=== PATIENT | male | born 1990 ===

== ENCOUNTER 2018-11-19 12:30 | Inpatient (IN) | payer OTHER ==
--- NOTE | 2018-11-19 14:16 | ED PDOC ---
HPI: Back Time Seen by Provider: 11/19/18 13:00 Chief Complaint (Nursing): Back Pain Chief Complaint (Provider): Back Pain History Per: Patient History/Exam Limitations: no limitations Current Symptoms Are (Timing): Still Present Additional Complaint(s): Jay Griggs is a 28 year old male with a history of back pain, who presents to the emergency department complaining of worsening back pain. Patient states that he was in an accident at work x1 year go, where he fell and herniated his lumbar spine. Since that onset, patient has had difficulty moving and working. Patient states that x1 week ago, he had an injection to the back but has had no relief of pain since. Dr. Lockhart recommended him to go to the ED. Patient sees Dr. Lockhart and follows up with Dr. Payne. He denies any recent trauma. Patient had imaging done x3 weeks ago that shows herniated disc. He has shooting pain down his left leg, but denies incontinence, retention or loss of strength. PMD: Dr. Payne Past Medical History Reviewed: Historical Data, Nursing Documentation, Vital Signs Vital Signs: Last Vital Signs Temp 98.4 F 11/19/18 12:35 Pulse 64 11/19/18 12:35 Resp 16 11/19/18 12:35 BP 117/64 11/19/18 12:35 Pulse Ox 100 11/19/18 12:35 - Medical History PMH: No Chronic Diseases Other PMH: herniated disc - Surgical History Surgical History: No Surg Hx - Family History Family History: States: Unknown Family Hx - Home Medications Home Medications: Ambulatory Orders Medication Instructions Recorded No Known Home Med 11/19/18 - Allergies Allergies/Adverse Reactions: Allergies Allergy/AdvReac Type Severity Reaction Status Date / Time No Known Allergies Allergy Verified 11/19/18 12:32 Review of Systems Genitourinary Male: Negative for: Incontinence Musculoskeletal: Positive for: Back Pain, Leg Pain (left leg) Physical Exam - Reviewed Nursing Documentation Reviewed: Yes Vital Signs Reviewed: Yes - Physical Exam Appears: Positive for: Non-toxic, No Acute Distress Head Exam: Positive for: ATRAUMATIC, NORMOCEPHALIC Skin: Positive for: Normal Color, Warm, Dry Cardiovascular/Chest: Positive for: Regular Rate, Rhythm. Negative for: Murmur Respiratory: Positive for: Normal Breath Sounds. Negative for: Respiratory Distress Back: Positive for: Other (tenderness to palpation along lumbar spine) Extremity: Positive for: Normal ROM. Negative for: Pedal Edema, Deformity Neurologic/Psych: Positive for: Alert, Oriented, Other (full strength and neurological sensation in lower extremity ) - Laboratory Results Result Diagrams: 11/19/18 14:27 11/19/18 14:27 - ECG O2 Sat by Pulse Oximetry: 100 (RA) Pulse Ox Interpretation: Normal Medical Decision Making Medical Decision Making: Time: 1338 A/P: Work up for worsening back pain. Give patient Toradol and flexeril and will discuss with Dr. Lockhart. Reassess patient. --Type and screen --EKG --BMP --CBC with differential --Chest xray --Flexeril 10 mg PO --Toradol 15 mg IM Time: 1411 --Patient admitted for intractable back pain under Dr. Payne. Time: 1450 Chest xray FINDINGS: LUNGS: The lungs are well inflated and clear. PLEURA: No pleural effusions or pneumothorax. CARDIOVASCULAR: The heart is normal in size. No aortic atherosclerotic calcifications present. OSSEOUS STRUCTURES: Within normal limits for the patient's age. VISUALIZED UPPER ABDOMEN: Normal. OTHER FINDINGS: None. IMPRESSION: No active pulmonary disease. Scribe Attestation: Documented by Tony Edge, acting as a scribe for Shena Rajan MD. Provider Scribe Attestation: All medical record entries made by the Scribe were at my direction and personally dictated by me. I have reviewed the chart and agree that the record accurately reflects my personal performance of the history, physical exam, medical decision making, and the department course for this patient. I have also personally directed, reviewed, and agree with the discharge instructions and disposition. Disposition - Patient ED Disposition Is Patient to be Admitted: Yes - Disposition Disposition Time: 14:09
--- NOTE | 2018-11-19 14:43 | RAD ---
Date of service: 11/19/2018 HISTORY: possible admission COMPARISON: No prior. FINDINGS: LUNGS: The lungs are well inflated and clear. PLEURA: No pleural effusions or pneumothorax. CARDIOVASCULAR: The heart is normal in size. No aortic atherosclerotic calcifications present. OSSEOUS STRUCTURES: Within normal limits for the patient's age. VISUALIZED UPPER ABDOMEN: Normal. OTHER FINDINGS: None. IMPRESSION: No active pulmonary disease.
[2018-11-19 14:44] LABS: BASO % 0.9 % (0.0-2.0); EOS # 0.1 K/uL (0.0-0.7); HEMOGLOBIN 11.1 g/dL (12.0-18.0); LYMPH # 1.9 K/uL (1.0-4.3); LYMPH % 42.6 % (20.0-40.0); MEAN CELL VOLUME 64.3 fl (80.0-94.0); MEAN CORPUSCULAR HEMOGLOBIN 20.1 pg (27.0-31.0); MEAN CORPUSCULAR HGB CONC 31.3 g/dL (33.0-37.0); MEAN PLATELET VOLUME 9.4 fl (7.2-11.7); MONO # 0.4 K/uL (0.0-0.8); MONO % 9.2 % (0.0-10.0); NEUT % 45.3 % (50.0-75.0); NRBC % 0.4 % (0.0-0.0); RBC 5.55 Mil/uL (4.40-5.90); RED CELL DISTRIBUTION WIDTH 14.9 % (11.5-14.5); WHITE BLOOD COUNT 4.5 K/uL (4.8-10.8)
[2018-11-19 15:01] LABS: BLOOD UREA NITROGEN 13 mg/dl (9-20); CALCIUM 9.5 mg/dL (8.4-10.2); GFR NON-AFRICAN AMERICAN > 60
--- NOTE | 2018-11-19 18:13 | CARD ---
APPROVED REPORT Date of service: 11/19/2018 EKG Measurement Heart [id number] <Conclusion> Sinus bradycardia with 1st degree AV block with premature ventricular complexes Otherwise normal ECG
[2018-11-19 18:36] LABS: PROTHROMBIN TIME 11.9 Seconds (9.8-13.1)
[2018-11-19 18:38] LABS: PARTIAL THROMBOPLASTIN TIME 34.6 Seconds (25.6-37.1)
[2018-11-20 05:40] LABS: SQUAMOUS EPITHIAL 1 /hpf (0-5); URINE BILIRUBIN NEGATIVE (NEGATIVE); URINE BLOOD NEGATIVE (NEGATIVE); URINE CLARITY CLOUDY (Clear); URINE COLOR YELLOW (YELLOW); URINE GLUCOSE (UA) NEG (NEGATIVE); URINE LEUKOCYTE ESTERASE NEG Leu/uL (Negative); URINE PROTEIN NEGATIVE (NEGATIVE); URINE UROBILINOGEN 0.2-1.0 mg/dL (0.2-1.0)
[2018-11-20] MEDS ORDERED: Dextrose 5%/0.9% NS 1,000 ML IV SCH (06:00)
--- NOTE | 2018-11-20 07:01 | CP.PCM.HP ---
History of Present Illness - History of Present Illness History of Present Illness: HPI: 28 y/o Male with a PMH of back pain presented to the ED with worsening back pain s/p work accident 1 year ago. As per the pt, he suffered lumbar herniation and has received lumbar injections, with no relief. Neurosurgery (Dr. Lockhart) is on consult, and the pt will undergo a lumbar procedure today. PMH: Back pain. PSH: Unremarkable. Allergies: NKDA. Present on Admission - Present on Admission Any Indicators Present on Admission: No Review of Systems - Review of Systems All systems: reviewed and no additional remarkable complaints except Review of Systems: lower back pain. Past Patient History - Past Medical History & Family History Past Medical History?: No - Past Social History Smoking Status: Never Smoked - CARDIAC Hx Cardiac Disorders: No - PULMONARY Hx Respiratory Disorders: No - NEUROLOGICAL Hx Neurological Disorder: No - HEENT Hx HEENT Problems: No - RENAL Hx Chronic Kidney Disease: No - ENDOCRINE/METABOLIC Hx Endocrine Disorders: No - HEMATOLOGICAL/ONCOLOGICAL Hx Blood Disorders: No Hx AIDS: No Hx Human Immunodeficiency Virus (HIV): No - INTEGUMENTARY Hx Dermatological Problems: No - MUSCULOSKELETAL/RHEUMATOLOGICAL Hx Falls: Yes Hx Herniated Disk: Yes (L3-L4) Other/Comment: epidural injection 3 weeks ago - GASTROINTESTINAL Hx Gastrointestinal Disorders: No - GENITOURINARY/GYNECOLOGICAL Hx Genitourinary Disorders: No - PSYCHIATRIC Hx Psychophysiologic Disorder: No Hx Substance Use: No - SURGICAL HISTORY Hx Surgeries: No - ANESTHESIA Hx Anesthesia: No Hx Anesthesia Reactions: No Meds Allergies/Adverse Reactions: Allergies Allergy/AdvReac Type Severity Reaction Status Date / Time No Known Allergies Allergy Verified 11/19/18 12:32 Physical Exam - Constitutional Appears: Well - Head Exam Head Exam: ATRAUMATIC, NORMAL INSPECTION, NORMOCEPHALIC - Eye Exam Eye Exam: EOMI, Normal appearance, PERRL Pupil Exam: NORMAL ACCOMODATION, PERRL - ENT Exam ENT Exam: Mucous Membranes Moist, Normal Exam - Neck Exam Neck exam: Positive for: Normal Inspection - Respiratory Exam Respiratory Exam: Clear to Auscultation Bilateral, NORMAL BREATHING PATTERN - Cardiovascular Exam Cardiovascular Exam: REGULAR RHYTHM, +S1, +S2 - GI/Abdominal Exam GI & Abdominal Exam: Normal Bowel Sounds, Soft - Extremities Exam Extremities exam: Positive for: full ROM, normal inspection - Back Exam Back exam: NORMAL INSPECTION, tenderness Additional comments: lower back painful ROM and tenderness. - Neurological Exam Neurological exam: Alert, CN II-XII Intact, Oriented x3 - Psychiatric Exam Psychiatric exam: Normal Affect, Normal Mood - Skin Skin Exam: Dry, Intact, Normal Color, Warm Results - Vital Signs Recent Vital Signs: Last Vital Signs Temp 97.9 F 11/20/18 04:53 Pulse 51 L 11/20/18 04:53 Resp 18 11/20/18 04:53 BP 94/54 L 11/20/18 04:53 Pulse Ox 98 11/20/18 04:53 - Labs Result Diagrams: 11/19/18 14:27 11/19/18 14:27 Labs: Laboratory Results - last 24 hr 11/19/18 11/19/18 11/19/18 14:27 14:27 14:27 WBC 4.5 L RBC 5.55 Hgb 11.1 L Hct 35.7 MCV 64.3 L MCH 20.1 L MCHC 31.3 L RDW 14.9 H Plt Count 177 MPV 9.4 Neut % (Auto) 45.3 L Lymph % (Auto) 42.6 H [place] % (Auto) 9.2 Eos % (Auto) 2.0 Baso % (Auto) 0.9 Neut # (Auto) 2.0 Lymph # (Auto) 1.9 [place] # (Auto) 0.4 Eos # (Auto) 0.1 Baso # (Auto) 0.0 PT INR APTT Sodium 139 Potassium 3.7 Chloride 101 Carbon Dioxide 24 Anion Gap 18 BUN 13 Creatinine 0.7 L Est GFR ( Amer) > 60 Est GFR (Non-Af Amer) > 60 Random Glucose 92 Calcium 9.5 Urine Color Urine Clarity Urine pH Ur Specific [place] Urine Protein Urine Glucose (UA) Urine Ketones Urine Blood Urine Nitrate Urine Bilirubin Urine Urobilinogen Ur Leukocyte Esterase Urine RBC (Auto) Urine Microscopic WBC Ur Squamous Epith Cells Hyaline Casts Blood Type O POSITIVE Blood Type Confirm Antibody Screen Negative BBK History Checked No verified bt 11/19/18 11/19/18 11/20/18 15:09 18:25 05:00 WBC RBC Hgb Hct MCV MCH MCHC RDW Plt Count MPV Neut % (Auto) Lymph % (Auto) [place] % (Auto) Eos % (Auto) Baso % (Auto) Neut # (Auto) Lymph # (Auto) [place] # (Auto) Eos # (Auto) Baso # (Auto) PT 11.9 INR 1.0 APTT 34.6 Sodium Potassium Chloride Carbon Dioxide Anion Gap BUN Creatinine Est GFR ( Amer) Est GFR (Non-Af Amer) Random Glucose Calcium Urine Color Yellow Urine Clarity Cloudy Urine pH 6.0 Ur Specific [place] 1.028 Urine Protein Negative Urine Glucose (UA) Neg Urine Ketones Negative Urine Blood Negative Urine Nitrate Negative Urine Bilirubin Negative Urine Urobilinogen 0.2-1.0 Ur Leukocyte Esterase Neg Urine RBC (Auto) 2 Urine Microscopic WBC 3 Ur Squamous Epith Cells 1 Hyaline Casts 3-5 H Blood Type Blood Type Confirm O POSITIVE Antibody Screen BBK History Checked Assessment & Plan (1) Intractable back pain Assessment and Plan: Assessment/Impression/Major Problems now: 1.) Intractable back pain: -For lumbar surgery with Dr. Lockhart. -Labs, X-ray, and EKG reviewed: unremarkable. -The pt is medically cleared for surgery at this time. -Dilaudid for pain relief. -Has been NPO since midnight; on D5/NS IVF. Status: Acute
--- NOTE | 2018-11-20 07:05 | CP.PCM.CON ---
History of Present Illness - History of Present Illness History of Present Illness: Neurosurgical consult: Dr. Lockhart Patient is a 28 y/o male who presented to the [facility] ER with complaints of severe lower back pain. The patient reports a work injury which occurred in April 04, 2018. He describes falling off a scaffold from a 24 foot height. He had been treated by conservative means with oral meds, PT and an epidural injection without complete relief of his pain. Over the past few weeks the pain had progressively worsened. The pain has hindered his daily activities, especially walking and sleeping. The pain radiates to BLE, worse to LLE with associated numbness and tingling. He denies any bowel or bladder incontinence. He denies any CP/SOB/N/V/D/fever/dysuria/melena. PMH: denies PSH: denies meds: none allergy: NKDA SH: denies ETOH/tobacco/drug use Review of Systems - Review of Systems Review of Systems: as per HPI Past Patient History - Past Medical History & Family History Past Medical History?: No Past Family History: Reviewed and not pertinent - Past Social History Smoking Status: Never Smoked - CARDIAC Hx Cardiac Disorders: No - PULMONARY Hx Respiratory Disorders: No - NEUROLOGICAL Hx Neurological Disorder: No - HEENT Hx HEENT Problems: No - RENAL Hx Chronic Kidney Disease: No - ENDOCRINE/METABOLIC Hx Endocrine Disorders: No - HEMATOLOGICAL/ONCOLOGICAL Hx Blood Disorders: No Hx AIDS: No Hx Human Immunodeficiency Virus (HIV): No - INTEGUMENTARY Hx Dermatological Problems: No - MUSCULOSKELETAL/RHEUMATOLOGICAL Hx Falls: Yes Hx Herniated Disk: Yes (L3-L4) Other/Comment: epidural injection 3 weeks ago - GASTROINTESTINAL Hx Gastrointestinal Disorders: No - GENITOURINARY/GYNECOLOGICAL Hx Genitourinary Disorders: No - PSYCHIATRIC Hx Psychophysiologic Disorder: No Hx Substance Use: No - SURGICAL HISTORY Hx Surgeries: No - ANESTHESIA Hx Anesthesia: No Hx Anesthesia Reactions: No Meds Allergies/Adverse Reactions: Allergies Allergy/AdvReac Type Severity Reaction Status Date / Time No Known Allergies Allergy Verified 11/19/18 12:32 - Medications Medications: Current Medications Hydromorphone HCl (Dilaudid) 1 mg IVP Q4 PRN PRN Reason: pain 1-5 Hydromorphone HCl (Dilaudid) 2 mg IVP Q4 PRN PRN Reason: PAIN 6-10 Last Admin: 11/19/18 18:09 Dose: 2 mg Dextrose/Sodium Chloride (Dextrose 5%/0.9% Ns 1000 Ml) 1,000 mls @ 80 mls/hr IV .[id number] LUIS ARMANDO Stop: 11/20/18 17:56 Last Admin: 11/20/18 05:51 Dose: 80 mls/hr Physical Exam - Constitutional Appears: Well, No Acute Distress - Head Exam Head Exam: ATRAUMATIC, NORMOCEPHALIC - Eye Exam Eye Exam: EOMI, Normal appearance - ENT Exam ENT Exam: Mucous Membranes Moist - Respiratory Exam Respiratory Exam: NORMAL BREATHING PATTERN - Extremities Exam Extremities exam: Positive for: normal inspection - Back Exam Additional comments: lumbar midline tenderness L paraspinal tenderness no lesions/masses/erythema sensation intact SP/DP/TN motor intact EHL/FHL/TA/G neg clonus neg SLR b/l - Neurological Exam Neurological exam: Alert, CN II-XII Intact, Oriented x3 - Psychiatric Exam Psychiatric exam: Normal Affect, Normal Mood - Skin Skin Exam: Normal Color, Warm Results - Vital Signs Recent Vital Signs: Last Vital Signs Temp 97.9 F 11/20/18 04:53 Pulse 51 L 11/20/18 04:53 Resp 18 11/20/18 04:53 BP 94/54 L 11/20/18 04:53 Pulse Ox 98 11/20/18 04:53 - Labs Result Diagrams: 11/21/18 05:20 11/21/18 05:20 Labs: Laboratory Results - last 24 hr 11/19/18 11/19/18 11/19/18 14:27 14:27 14:27 WBC 4.5 L RBC 5.55 Hgb 11.1 L Hct 35.7 MCV 64.3 L MCH 20.1 L MCHC 31.3 L RDW 14.9 H Plt Count 177 MPV 9.4 Neut % (Auto) 45.3 L Lymph % (Auto) 42.6 H [place] % (Auto) 9.2 Eos % (Auto) 2.0 Baso % (Auto) 0.9 Neut # (Auto) 2.0 Lymph # (Auto) 1.9 [place] # (Auto) 0.4 Eos # (Auto) 0.1 Baso # (Auto) 0.0 PT INR APTT Sodium 139 Potassium 3.7 Chloride 101 Carbon Dioxide 24 Anion Gap 18 BUN 13 Creatinine 0.7 L Est GFR ( Amer) > 60 Est GFR (Non-Af Amer) > 60 Random Glucose 92 Calcium 9.5 Urine Color Urine Clarity Urine pH Ur Specific [place] Urine Protein Urine Glucose (UA) Urine Ketones Urine Blood Urine Nitrate Urine Bilirubin Urine Urobilinogen Ur Leukocyte Esterase Urine RBC (Auto) Urine Microscopic WBC Ur Squamous Epith Cells Hyaline Casts Blood Type O POSITIVE Blood Type Confirm Antibody Screen Negative BBK History Checked No verified bt 11/19/18 11/19/18 11/20/18 15:09 18:25 05:00 WBC RBC Hgb Hct MCV MCH MCHC RDW Plt Count MPV Neut % (Auto) Lymph % (Auto) [place] % (Auto) Eos % (Auto) Baso % (Auto) Neut # (Auto) Lymph # (Auto) [place] # (Auto) Eos # (Auto) Baso # (Auto) PT 11.9 INR 1.0 APTT 34.6 Sodium Potassium Chloride Carbon Dioxide Anion Gap BUN Creatinine Est GFR ( Amer) Est GFR (Non-Af Amer) Random Glucose Calcium Urine Color Yellow Urine Clarity Cloudy Urine pH 6.0 Ur Specific [place] 1.028 Urine Protein Negative Urine Glucose (UA) Neg Urine Ketones Negative Urine Blood Negative Urine Nitrate Negative Urine Bilirubin Negative Urine Urobilinogen 0.2-1.0 Ur Leukocyte Esterase Neg Urine RBC (Auto) 2 Urine Microscopic WBC 3 Ur Squamous Epith Cells 1 Hyaline Casts 3-5 H Blood Type Blood Type Confirm O POSITIVE Antibody Screen BBK History Checked - Impressions Impression: MRI from outside facility shows disc herniation at L3-4 level Assessment & Plan (1) Lumbar spondylosis Assessment and Plan: -Dr. Lockhart recommends L3-L4 lumbar laminectomy, possible other levels -Risks/benefits/alternatives were explained to patient who understands and agrees to proceed with above -above d/w Dr. Lockhart in agreement Status: Acute - Date & Time Date: 11/20/18 Time: 07:04
[2018-11-20] MEDS ORDERED: Bupivacaine HCl 0.5% PF (30 ml) Inj ONE (07:12)
[2018-11-20] MEDS ORDERED: Midazolam 2 MG/2 ML VIAL ONE (07:12)
[2018-11-20] MEDS ORDERED: Lidocaine 1% w Epi 1:100,000 Inj ONE (07:12)
[2018-11-20] MEDS ORDERED: Propofol 10 mg/ml Inj (20 ML) ONE (07:12)
[2018-11-20] MEDS ORDERED: Absorbable Gelatin Sponge Size 12-7 ONE (07:12)
[2018-11-20] MEDS ORDERED: Lidocaine 4% (Laryng-O-Jet) Kit MM ONE (07:13)
[2018-11-20] MEDS ORDERED: Rocuronium 10 mg/ml (5 ml) ONE (07:13)
[2018-11-20] MEDS ORDERED: Succinylcholine Chloride 20 mg/ml Syr (5 ml) IV ONE (07:13)
[2018-11-20] MEDS ORDERED: Lactated Ringer's 1,000 ML IV ONE ×2 (07:45→12:30)
[2018-11-20] MEDS ORDERED: Dexamethasone 4 mg/1 ml ONE (08:14)
[2018-11-20] MEDS ORDERED: HEMOSTATIC MATRIX 10 ML DIS.NEEDLE TOP ONE (08:31)
[2018-11-20] MEDS ORDERED: Neostigmine 1:1000 (1 mg/ml) Inj ONE (08:52)
[2018-11-20] MEDS ORDERED: Bupivacaine 0.5% Inj(30mL) IJ ONE (09:10)
[2018-11-20] MEDS ORDERED: Dexamethasone 4 mg/1 ml IVP PRN (09:33)
--- NOTE | 2018-11-20 09:33 | PCM.SURG1 ---
Surgeon's Initial Post Op Note - Surgeon's Notes Surgeon: Nima Lockhart MD [employer] Admin: Gee Vanessa PA-C Type of Anesthesia: General Endo Anesthesia Administered By: Niraj Robles MD Pre-Operative Diagnosis: Lumbar spondylosis Operative Findings: see complete operative report Post-Operative Diagnosis: L3-L4 lumbar spondylosis Operation Performed: L3-L4 laminectomy and annuloplasty Specimen/Specimens Removed: none Estimated Blood Loss: EBL {In ML}: 25 Blood Products Given: N/A Drains Used: No Drains Post-Op Condition: Good Date of Surgery/Procedure: 11/20/18 Time of Surgery/Procedure: 08:16
[2018-11-20] MEDS ORDERED: Oxycodone/Acetaminophen 5/325 mg Tab PO PRN (09:34)
[2018-11-20] MEDS: HYDROmorphone 0.5 mg/0.5 ml ISec IVP PRN ×4 (10:15→12:15)
[2018-11-20] MEDS: Oxycodone/Acetaminophen 5/325 mg Tab PO PRN (13:47)
--- NOTE | 2018-11-20 20:06 | OP ---
PROCEDURE DATE: 11/20/2018 PREOPERATIVE DIAGNOSIS: Lumbar disk herniation. POSTOPERATIVE DIAGNOSIS: Lumbar disk herniation. PROCEDURE: Lumbar laminotomy decompression at L3-L4 and annuloplasty radiofrequency. Microscope has been used. Fluoroscopy has been used. SURGEON: Nima Lockhart MD SUPPLY CHAIN TECH: Gee Vanessa. Gee Vanessa is a physician election assistant who helped me to perform the surgery. DESCRIPTION OF PROCEDURE: The patient was brought to the operating room, anesthetized with general endotracheal anesthesia, and placed in a prone position on a Gus table. Care was taken to protect all pressure points. Back of the lumbar area was thoroughly prepped and draped in a sterile manner after marking the skin incision for lumbar laminotomy. After prepping and draping the area, skin has been incised. Bleeding skin has been controlled with bipolar hull builder. After using a Bovie hull builder, paraspinal muscles have been detached, attachments of spinous process and lamina of L3-L4. Jaye retractor has been applied to alter the facet joint of L3-L4 on the left side. After confirming the levels with fluoroscopy by using a microscope, the lamina of L4-L5 and medial part of L4-L5 had been drilled. Drilling was continued until top and bottom of the ligamentum flavum were seen. Drilling was also continued on the medial part of the facets until the turn of ligamentum flavum was seen. Once this had been done, thinned out the lamina, medial part of the facets and ligamentum flavum had been removed. The disk space has been examined. It was found to be that there was no loose fragment, but was found to be hard. Hence, foraminotomy was performed. At this time, by using a curved radiofrequency needle, the disk space has been entered. The needle has been confirmed to the position close to the annula and radiofrequency heat has been applied in multiple areas through the curved needle. After that, the needle has been removed. Hemostasis was best achieved. Fascia was closed subcutaneous tissue with 3-0 Vicryl. Skin has been done with intradermal stitches. The patient tolerated the procedure. After procedure, mobilized to the recovery room in stabilized condition. Nima Lockhart MD [facility] # [id number]
[2018-11-20] MEDS: Lactated Ringer's 1,000 ML IV SCH (20:31)
[2018-11-21] MEDS: Lactated Ringer's 1,000 ML IV SCH (06:03)
[2018-11-21 06:29] LABS: HEMOGLOBIN 10.5 g/dL (12.0-18.0); MEAN CORPUSCULAR HEMOGLOBIN 20.4 pg (27.0-31.0); MEAN CORPUSCULAR HGB CONC 31.9 g/dL (33.0-37.0); RBC 5.16 Mil/uL (4.40-5.90); RED CELL DISTRIBUTION WIDTH 14.9 % (11.5-14.5); WHITE BLOOD COUNT 8.4 K/uL (4.8-10.8)
[2018-11-21 06:41] LABS: BLOOD UREA NITROGEN 13 mg/dl (9-20); CALCIUM 8.8 mg/dL (8.4-10.2); GFR NON-AFRICAN AMERICAN > 60
[2018-11-21] MEDS: Oxycodone/Acetaminophen 5/325 mg Tab PO PRN (08:20)
[2018-11-21 08:26] VITALS: BP 92/58; RESP 16; TEMP 99; O2SAT 99
--- NOTE | 2018-11-21 09:26 | CP.PCM.PN ---
Subjective - Date & Time of Evaluation Date of Evaluation: 11/21/18 Time of Evaluation: 08:00 - Subjective Subjective: Patient seen and examined at bedside comfortable. Pain well controlled. Notes that radiating pain to BLE has resolved postop. Tolerated PT well. Denies CP/SOB/dizziness/fever. Objective - Vital Signs/Intake and Output Vital Signs (last 24 hours): Temp Pulse Resp BP Pulse Ox 99.0 F 69 16 92/58 L 99 11/21/18 08:25 11/21/18 08:25 11/21/18 08:25 11/21/18 08:25 11/21/18 08:25 - Medications Medications: Current Medications Acetaminophen (Tylenol 325mg Tab) 650 mg PO Q4 PRN PRN Reason: Fever 101 degrees fahrenheit Cyclobenzaprine HCl (Flexeril) 10 mg PO Q8 PRN PRN Reason: Muscle spasm Last Admin: 11/20/18 16:46 Dose: 10 mg Docusate Sodium (Colace) 100 mg PO BID [facility] Last Admin: 11/21/18 08:18 Dose: 100 mg Lactated Ringer's (Lactated Ringer's) 1,000 mls @ 100 mls/hr IV .Q10H [facility] Last Admin: 11/21/18 06:03 Dose: 100 mls/hr Meperidine HCl (Demerol) 12.5 mg IVP Q5M PRN PRN Reason: Shivering/Rigor Morphine Sulfate (Morphine) 2 mg IVP Q4 PRN PRN Reason: Pain, severe (8-10) Last Admin: 11/20/18 23:25 Dose: 2 mg Ondansetron HCl (Zofran Inj) 4 mg IVP ONCE PRN PRN Reason: Nausea/Vomiting Oxycodone/Acetaminophen (Percocet 5/325 Mg Tab) 2 tab PO Q4 PRN PRN Reason: Pain, moderate (4-7) Stop: 11/23/18 09:35 Last Admin: 11/21/18 08:20 Dose: 2 tab Oxycodone/Acetaminophen (Percocet 5/325 Mg Tab) 1 tab PO Q4 PRN PRN Reason: Pain, Mild (1-3) Stop: 11/23/18 09:35 - Labs Labs: 11/21/18 05:20 03/07/19 05:20 PT 11.9 Seconds (9.8-13.1) 11/19/18 18:25 INR 1.0 11/19/18 18:25 APTT 34.6 Seconds (25.6-37.1) 11/19/18 18:25 - Back Exam Additional comments: mild [place]-incisional tenderness 2nd to surgery Dressings CDI sensation intact SP/DP/TN motor intact EHL/FHL/TA/G neg clonus neg SLR b/l Assessment and Plan (1) Lumbar spondylosis Assessment & Plan: POD# 1 s/p L3-L4 lumbar laminectomy -PT/OT -neurosurgically stable to discharge home today -f/u in office in 7-10 days, call for appt -above d/w Dr. Lockhart in agreement Status: Acute
--- NOTE | 2018-11-21 14:05 | CP.PCM.DIS ---
Provider - Provider Date of Admission: 11/19/18 14:09 Attending physician: Daniel Payne MD Consults: 11/20/18 07:05 Neuro Surgery Consult Routine Comment: Consulting Provider: Nima Lockhart Consulting Physician: Nima Lockhart Reason for Consult: lower back pain Time Spent in preparation of Discharge (in minutes): 30 Diagnosis - Discharge Diagnosis (1) Lumbar spondylosis Status: Acute Hospital Course - Lab Results Lab Results: Most Recent Lab Values WBC 8.4 K/uL (4.8-10.8) D 11/21/18 05:20 RBC 5.16 Mil/uL (4.40-5.90) 11/21/18 05:20 Hgb 10.5 g/dL (12.0-18.0) L 11/21/18 05:20 Hct 33.0 % (35.0-51.0) L 11/21/18 05:20 MCV 64.0 fl (80.0-94.0) L 11/21/18 05:20 MCH 20.4 pg (27.0-31.0) L 11/21/18 05:20 MCHC 31.9 g/dL (33.0-37.0) L 11/21/18 05:20 RDW 14.9 % (11.5-14.5) H 11/21/18 05:20 Plt Count 181 K/uL (130-400) 11/21/18 05:20 MPV 9.4 fl (7.2-11.7) 11/19/18 14:27 Neut % (Auto) 45.3 % (50.0-75.0) L 11/19/18 14:27 Lymph % (Auto) 42.6 % (20.0-40.0) H 11/19/18 14:27 [place] % (Auto) 9.2 % (0.0-10.0) 11/19/18 14:27 Eos % (Auto) 2.0 % (0.0-4.0) 11/19/18 14:27 Baso % (Auto) 0.9 % (0.0-2.0) 11/19/18 14:27 Neut # (Auto) 2.0 K/uL (1.8-7.0) 11/19/18 14:27 Lymph # (Auto) 1.9 K/uL (1.0-4.3) 11/19/18 14:27 [place] # (Auto) 0.4 K/uL (0.0-0.8) 11/19/18 14:27 Eos # (Auto) 0.1 K/uL (0.0-0.7) 11/19/18 14:27 Baso # (Auto) 0.0 K/uL (0.0-0.2) 11/19/18 14:27 PT 11.9 Seconds (9.8-13.1) 11/19/18 18:25 INR 1.0 11/19/18 18:25 APTT 34.6 Seconds (25.6-37.1) 11/19/18 18:25 Sodium 139 mmol/l (132-148) 11/21/18 05:20 Potassium 3.8 MMOL/L (3.6-5.0) 11/21/18 05:20 Chloride 102 mmol/L (98-107) 11/21/18 05:20 Carbon Dioxide 28 mmol/L (22-30) 11/21/18 05:20 Anion Gap 13 (10-20) 11/21/18 05:20 BUN 13 mg/dl (9-20) 11/21/18 05:20 Creatinine 0.8 mg/dl (0.8-1.5) 11/21/18 05:20 Est GFR ( Amer) > 60 11/21/18 05:20 Est GFR (Non-Af Amer) > 60 11/21/18 05:20 Random Glucose 103 mg/dL (75-110) 11/21/18 05:20 Calcium 8.8 mg/dL (8.4-10.2) 11/21/18 05:20 Urine Color Yellow (YELLOW) 11/20/18 05:00 Urine Clarity Cloudy (Clear) 11/20/18 05:00 Urine pH 6.0 (5.0-8.0) 11/20/18 05:00 Ur Specific [place] 1.028 (1.003-1.030) 11/20/18 05:00 Urine Protein Negative mg/dL (NEGATIVE) 11/20/18 05:00 Urine Glucose (UA) Neg mg/dL (NEGATIVE) 11/20/18 05:00 Urine Ketones Negative mg/dL (NEGATIVE) 11/20/18 05:00 Urine Blood Negative (NEGATIVE) 11/20/18 05:00 Urine Nitrate Negative (NEGATIVE) 11/20/18 05:00 Urine Bilirubin Negative (NEGATIVE) 11/20/18 05:00 Urine Urobilinogen 0.2-1.0 mg/dL (0.2-1.0) 11/20/18 05:00 Ur Leukocyte Esterase Neg Jen/uL (Negative) 11/20/18 05:00 Urine RBC (Auto) 2 /hpf (0-3) 11/20/18 05:00 Urine Microscopic WBC 3 /hpf (0-5) 11/20/18 05:00 Ur Squamous Epith Cells 1 /hpf (0-5) 11/20/18 05:00 Hyaline Casts 3-5 /hpf (0-2) H 11/20/18 05:00 Blood Type O POSITIVE 11/19/18 14:27 Blood Type Confirm O POSITIVE 11/19/18 15:09 Antibody Screen Negative 11/19/18 14:27 BBK History Checked No verified bt 11/19/18 14:27 - Hospital Course Hospital Course: 28 y/o Male with a PMH of back pain presented to the ED with worsening back pain s/p work accident 1 year ago. As per the pt, he suffered lumbar herniation and has received lumbar injections, with no relief. Neurosurgery consulted, Dr. Lockhart. Patient is s/p L3-L4 lumbar laminectomy. Patient did well postoperatively and with physical therapy. Patient discharged home in stable condition. Discharge Exam - Head Exam Head Exam: ATRAUMATIC, NORMOCEPHALIC - Eye Exam Eye Exam: Normal appearance - Respiratory Exam Respiratory Exam: NORMAL BREATHING PATTERN - Cardiovascular Exam Cardiovascular Exam: REGULAR RHYTHM - Neurological Exam Neurological exam: Alert, Oriented x3 - Psychiatric Exam Psychiatric exam: Normal Affect, Normal Mood - Skin Skin Exam: Normal Color, Warm Discharge Plan - Follow Up Plan Condition: STABLE Disposition: HOME/ ROUTINE Instructions: Laminectomy (DC), Postspine Surgery Precautions Additional Instructions: no heavy lifting or bending. Follow up with Dr Lockhart-call office for appointment [phone]. Call Dr Lockhart for fever/uncontrolled pain or any other concerns. Percocet for pain-one tablet three times a day as needed. May also take motrin as directed.
[2018-11-21 15:34] VITALS: PULSE 76
--- NOTE | 2018-11-22 13:31 | RAD ---
Date of service: 11/20/2018 PROCEDURE: Intraoperative Fluoroscopy. HISTORY: LUMBAR LAMINECTOMY FINDINGS: Fluoroscopic assistance was provided. Fluoroscopy time = 14.9 sec. Radiation dose = 9.61 mGy. Please refer to the operative report for additional details..
== END 2018-11-21 14:00 | disposition home or self-care (01) | DRG 517 ==
LOC: H.ER 12:30 → H.ERHOLD 14:09 → H.PEDS 16:52
PROVIDERS: ADMIT Family Medicine; ATTEND Family Medicine
PROC: 01NB0ZZ Release Lumbar Nerve, Open Approach (ICD-10-PCS; principal; 2018-11-20 07:45)
PROC: F07Z9FZ Gait Training/Functional Ambulation Treatment using Assistive, Adaptive, Supportive or Protective Equipment (ICD-10-PCS; 2018-11-21)
DX: M47.816 Spondylosis without myelopathy or radiculopathy, lumbar region (principal); M51.26 Other intervertebral disc displacement, lumbar region; Z87.828 Personal history of other (healed) physical injury and trauma; Z91.81 History of falling